=== PATIENT | female | born 1980 | race American Indian/Alaskan Native ===

== ENCOUNTER 2018-07-28 16:09 | Emergency (ER) | payer MEDICAID ==
--- NOTE | 2018-07-28 17:01 | Emergency Department Report ---
Blank Doc - Documentation Documentation: 37 y o female was sent here from a clinic for evaluation of no cardiac ac tivity lmp 06/06/18 denies vag bleed, abd pain quant hcg U/S reevaluate
[2018-07-28 17:34] LABS: Basophils % (Auto) 0.6 % (0.0-1.8); Eosinophils % (Auto) 0.4 % (0.0-4.3); Hematocrit 35.4 % (30.3-42.9); Lymphocytes # (Auto) 2.5 K/mm3 (1.2-5.4); Lymphocytes % (Auto) 30.5 % (13.4-35.0); Mean Corpuscular HGB Conc 34 % (30-34); Mean Corpuscular Volume 86 fl (79-97); Monocytes # (Auto) 0.4 K/mm3 (0.0-0.8); Monocytes % (Auto) 4.8 % (0.0-7.3); Platelet Count 303 K/mm3 (140-440); Red Blood Count 4.11 M/mm3 (3.65-5.03); Red Cell Distribution Width 15.5 % (13.2-15.2)
[2018-07-28 17:45] LABS: INR 0.9 (0.87-1.13)
[2018-07-28 17:46] LABS: Partial Thromboplastin Time 28.4 Sec. (24.2-36.6)
--- NOTE | 2018-07-28 18:41 | Emergency Department Report ---
ED HPI - General Chief complaint: Abdominal Pain Stated complaint: NO HEART BEAT FOR BABY Time Seen by Provider: 07/28/18 16:56 Source: patient Mode of arrival: Ambulatory Limitations: No Limitations - History of Present Illness Initial comments: This is a 37-year-old female nontoxic, well nourished in appearance, no acute signs of distress presents to the ED with c/o of no tone. Patient stated that she was seen in a clinic and when ultrasound has been performed, patient was told that they can not see any heart tones. Patient stated LMP was 06/06/2018. Patient denies seeing a OBGYN yet. Patient denies any vaginal bleeding. Patient denies any abdominal or pelvic pain. Patient denies any vaginal discharge or foul odor. Patient denies urinary symptoms. Patient denies any nausea, vomiting, chest pain, shortness of breathe, fever, chills, headache, stiff neck, numbness, tingling. Patient denies any allergies or PMH. -: This morning Radiation: none Severity scale (0 -10): 0 Improves with: none Worsens with: none Associated symptoms: denies other symptoms. denies: nausea/vomiting, vaginal bleeding, vaginal discharge, abdominal pain, dysuria, headache, vision changes, malaise, dysparuenia, rash, seizure, shortness of breath, syncope, weakness Vaginal bleeding: none :: Yes Pre- care: none - Related Data Previous Rx's Medication Instructions Recorded Last Taken Type 21/Iron Fu/Folic Acid 1 each PO DAILY #30 tablet 07/28/18 Unknown Rx [ Complete Caplet] Allergies Allergy/AdvReac Type Severity Reaction Status Date / Time No Known Allergies Allergy Unverified 07/28/18 16:56 ED Review of Systems ROS: Stated complaint: NO HEART BEAT FOR BABY Other details as noted in HPI Constitutional: denies: chills, fever Eyes: denies: eye pain, eye discharge, vision change ENT: denies: ear pain, throat pain Respiratory: denies: cough, shortness of breath, wheezing Cardiovascular: denies: chest pain, palpitations Endocrine: no symptoms reported Gastrointestinal: denies: abdominal pain, nausea, diarrhea Genitourinary: denies: urgency, dysuria, discharge Musculoskeletal: denies: back pain, joint swelling, arthralgia Skin: denies: rash, lesions Neurological: denies: headache, weakness, paresthesias Psychiatric: denies: anxiety, depression Hematological/Lymphatic: denies: easy bleeding, easy bruising ED Past Medical Hx - Past Medical History Previous Medical History?: No - Surgical History Past Surgical History?: No - Social History Smoking Status: Never Smoker Substance Use Type: None - Medications Home Medications: Home Medications Medication Instructions Recorded Confirmed Last Taken Type 21/Iron Fu/Folic Acid 1 each PO DAILY #30 tablet 07/28/18 Unknown Rx [ Complete Caplet] ED Physical Exam - General Limitations: No Limitations General appearance: alert, in no apparent distress - Head Head exam: Present: atraumatic, normocephalic - Neck Neck exam: Present: normal inspection, full ROM - GI/Abdominal GI/Abdominal exam: Present: soft, normal bowel sounds. Absent: distended, tenderness, guarding, rebound, rigid, diminished bowel sounds - Extremities Exam Extremities exam: Present: normal inspection, full ROM, normal capillary refill - Back Exam Back exam: Present: normal inspection, full ROM - Neurological Exam Neurological exam: Present: alert, oriented X3 - Psychiatric Psychiatric exam: Present: normal affect, normal mood - Skin Skin exam: Present: warm, dry, intact, normal color. Absent: rash ED Course Vital Signs 07/28/18 16:56 Temperature 98.5 F Pulse Rate 81 Respiratory 18 Rate Blood Pressure 135/54 [Left] O2 Sat by Pulse 99 Oximetry - Reevaluation(s) Reevaluation #1: 07/28/18 21:01 Patient is speaking in full sentences with no signs of distress noted. ED Medical Decision Making - Lab Data Result diagrams: 07/28/18 17:22 07/28/18 17:22 - Medical Decision Making This is a 37-year-old female presents with . Patient is stable and was examined by me. Normal abdominal exam. US OB obtained and dictated by the radiologist. Ua obtained. Quantative serum test obtained. Patient notified of the US report with no questions noted by the patient. Patient was instructed f/u with [facility] in 2-3 days to follow up with a [facility] or to emergency room for a reevaluation of serum quantative test with possible ultrasound. Labs within normal limits. Patient was given strict precautions and education on ectopic . At time of discharge, the patient does not seem toxic or ill in appearance. No acute signs of distress noted. Patient agrees to discharge treatment plan of care. No further questions noted by the patient. Critical care attestation.: If time is entered above; I have spent that time in minutes in the direct care of this critically ill patient, excluding procedure time. ED Disposition Clinical Impression: Qualifiers: Weeks of gestation: less than 8 weeks Qualified Code(s): Z3A.01 - Less than 8 weeks gestation of Disposition: DC- TO HOME OR SELFCARE Is pt being admited?: No Does the pt Need Aspirin: No Condition: Stable Instructions: (ED) Additional Instructions: Follow-up with a OBGYN doctor in 2-3 days or if symptoms worsen and continue return to emergency room as soon as possible. Prescriptions: 21/Iron Fu/Folic Acid [ Complete Caplet] 1 each PO DAILY #30 tablet Referrals: [facility] [Outside] - 3-5 Days [facility] [Outside] - 3-5 Days [facility] [Referring] - 3-5 Days DEION JORDAN MD [Staff Physician] - 3-5 Days JOSE RODRÍGUEZ MD [Staff Physician] - 3-5 Days [facility] [Provider Group] - 3-5 Days Forms: Work/School Release Form(ED)
[2018-07-28 19:12] LABS: Alanine Aminotransferase 7 units/L (7-56); Albumin 4.3 g/dL (3.9-5); BUN/Creatinine Ratio 11; Blood Urea Nitrogen 8 mg/dL (7-17); Calcium 9.5 mg/dL (8.4-10.2); Hemolysis Index 3
[2018-07-28 20:58] LABS: Bilirubin,Urine NEG (Negative); Blood,Urine NEG (Negative); Color,Urine Yellow (Yellow); Mucus,Urine FEW /HPF; Protein,Urine <15 mg/dL mg/dL (Negative); Urobilinogen,Urine < 2.0 mg/dL (<2.0)
--- NOTE | 2018-07-28 21:08 | Ultrasound Report ---
FINAL REPORT PROCEDURE: US OB < = 14 WEEKS FETUS TECHNIQUE: Real-time transabdominal sonography of the uterus, placenta, amniotic fluid, adnexa, and fetus was performed with image documentation. Measurements were obtained to determine age/size. M-mode Doppler was used to document heartbeat. CPT 22914 HISTORY: no hb COMPARISON: No prior studies are available for comparison. FINDINGS: A single intrauterine gestational sac is identified fluid a small pole is noted measuring about a millimeters corresponding to 6 weeks and 3 days the. cardiac activity not visualized. Yolk s ac is visualized and appears normal. An irregular hypoechoic lesion is in the subchorionic region дмитрий suring 1.3 x 1.2 x 0.6 centimeters consistent with a subchorionic hemorrhage. Cervix is normal in int ernal os is closed. Right ovary measures 2.7 x 1.4 x 2 centimeters with normal echotexture. Left ovary measures 3.9 x 2.5 x 3.5 centimeters with an irregular cystic lesion measuring 2.1 x 1.0 centimeters. There is no free fluid in the pelvic cavity. IMPRESSION: A small pole is noted corresponding to 6 weeks and 3 days of gestational age. There is no cardiac activity consistent with intrauterine failure. Small irregular subchorionic bleed identified
--- NOTE | 2018-07-28 21:09 | Ultrasound Report ---
FINAL REPORT PROCEDURE: US OB TRANSVAGINAL TECHNIQUE: Real-time transvaginal sonography of the uterus, placenta, amniotic fluid, adnexa, and fe tus was performed with image documentation. Measurements were obtained to determine age/size. M -mode Doppler was used to document heartbeat. CPT 61501 HISTORY: no hb COMPARISON: No prior studies are available for comparison. FINDINGS: A single intrauterine gestational sac is identified fluid a small pole is noted measuring about a millimeters corresponding to 6 weeks and 3 days the. cardiac activity not visualized. Yolk s ac is visualized and appears normal. An irregular hypoechoic lesion is in the subchorionic region дмитрий suring 1.3 x 1.2 x 0.6 centimeters consistent with a subchorionic hemorrhage. Cervix is normal in int ernal os is closed. Right ovary measures 2.7 x 1.4 x 2 centimeters with normal echotexture. Left ovary measures 3.9 x 2.5 x 3.5 centimeters with an irregular cystic lesion measuring 2.1 x 1.0 centimeters. There is no free fluid in the pelvic cavity. IMPRESSION: A small pole is noted corresponding to 6 weeks and 3 days of gestational age. There is no cardiac activity consistent with intrauterine failure. Small irregular subchorionic bleed identified
[2018-07-28 22:16] VITALS: BP 157/78
== END 2018-07-28 22:16 | disposition home or self-care (01) ==
LOC: ED 16:09
DX: O26.891 Other specified pregnancy related conditions, first trimester (principal); Z3A.01 Less than 8 weeks gestation of pregnancy
CPT/HCPCS: 36415; 76801; 76817; 80053; 81001; 84702; 85025; 85610; 85730; 86900; 86901

== ENCOUNTER 2018-08-20 10:39 | Day surgery (SDC) | payer MEDICAID ==
--- NOTE | 2018-08-20 10:36 | History and Physical Report ---
History of Present Illness Date of examination: 08/20/18 History of present illness: Ethnicity: Menstrual History Regularity: regular Duration: 4-5 LMP: 06/06/2018 LMP reliability: definite LMP character: normal test type: urine test Date: 08/07/2018 BC at conception: none Planned ? yes EDC Calculations LMP: 03/13/2019 EDC Confirmation: 03/13/2019 Past History : 5 Term Births: 3 Premature Births: 0 Living Children: 3 Para: 3 Mult. Births: 0 Prev : 0 Aborta: 1 Elect. Ab: 1 Spont. Ab: 0 Ectopics: 0 # 1 Delivery date: 10/29/2001 Weeks Gestation: 39 labor: no Delivery type: Hours of labor: 20 Anesthesia type: IV Delivery location: [place] Sex: Female weight: 4-12 Name: Maria C # 2 Delivery date: 05/18/2004 Weeks Gestation: 39 labor: no Delivery type: Hours of labor: 20 Anesthesia type: epidural Delivery location: [place] Sex: Male weight: 5-? Name: Abel # 3 Delivery date: 04/23/2008 Weeks Gestation: 39 labor: no Delivery type: Hours of labor: ? Anesthesia type: epidural Delivery location: [place] Infant Sex: Male weight: 7-8 Name: Joshua # 4 Delivery date: 04/2017 Delivery type: EAB Past Medical History: Negative Past Medical History Past Surgical History: D&C: (2016) Family History Summary: Other family member - Has No Family History of Ovarvian Cancer - Entered On: 08/07/2018 Other family member - Has No Family History of Colon Cancer - Entered On: 08/07/2018 Other family member - Has No Family History of Breast Cancer - Entered On: 08/07/2018 Other family member - Has Family History of Hypertension - Entered On: 08/07/2018 Social History: Marital Status: single Children: 3 Occupation: Unemployment Risk Factors: Smoked Tobacco Use: Never smoker Drug use: yes Substance: marijuana HIV high-risk behavior: low risk Alcohol use: no Past Medical History Surgery (Non-logistics engineer): D&C: (2016) Abnormal PAP: negative Uterine Anomaly: negative Social Hx: Marital Status: single Children: 3 Occupation: Unemployment Infection History Hx of STD: none HIV Risk Eval: low risk Hepatitis B Risk Eval: low risk Personal hx. of genital herpes: no Active Medications (reviewed today): PROMETHAZINE HCL 25 MG ORAL TABLET (PROMETHAZINE HCL) 1 po q 6 hrs prn nausea Current Allergies (reviewed today): No known allergies Review of Systems General Denies fever, chills, sweats, anorexia, fatigue, weakness, malaise, weight loss and sleep disorder. Complains of pelvic pain. Denies vaginal discharge, incontinence, dysuria, hematuria, urinary frequency, amenorrhea, menorrhagia, abnormal vaginal bleeding, genital sores, decreased libido, painful periods, painful sex, urinary urgency, hot flashes, vaginal dryness, vaginal itching and vaginal odor. CV Denies chest pains, palpitations, syncope, dyspnea on exertion, orthopnea, PND and peripheral edema. Resp Denies cough, dyspnea at rest, excessive sputum, hemoptysis, wheezing and pleurisy. GI Complains of nausea and vomiting. Denies diarrhea, constipation, change in bowel habits, abdominal pain, melena, hematochezia, jaundice, gas/bloating, indigestion/heartburn, dysphagia and odynophagia. Breast Denies left breast lump, right breast lump, nipple discharge, bloody discharge from nipple, breast pain, abnormal mammogram and breast enlargement. Psych Denies depression, anxiety, irritability and mood swings. Past History Past Medical History: No medical history Past Surgical History: Other (See HPI) Social history: other (See HPI) Family history: other Medications and Allergies Allergies Allergy/AdvReac Type Severity Reaction Status Date / Time No Known Allergies Allergy Unverified 08/19/18 17:27 Home Medications Medication Instructions Recorded Confirmed Last Taken Type No Known Home Medications [No 08/19/18 08/19/18 Unknown History Reported Home Medications] Review of Systems Constitutional: other (See HPI) Exam - Physical Exam Narrative exam: HEENT: normocephalic, no lesions or deformities Neck/Thyroid: supple, thyroid normal Skin no significant abnormal lesions or rashes Chest: respiratory effort normal, clear to auscultation Breasts: skin/areolae normal, no masses, no nipple discharge, no erythema/warmth/tenderness, and axillae normal. CV: regular, normal S1-S2, no murmur, no rub, no gallop Abdomen: normal bowel sounds, soft, nontender, no HSM Musculoskeletal: grossly normal ROM in joints, no joint tenderness or muscle weakness Neuro: no gross anomalities Extremities: no clubbing, cyanosis, or edema [employer] Exams Vulva/Vagina: No lesions, normal BUS, normal rugae Cervix: No lesions; no cervical motion tenderness Uterus: normal size and position, midline, mobile Adnexae: no masses or tenderness Rectovaginal: exam defered Assessment and Plan - Patient Problems (1) Missed Status: Acute Plan to address problem: Medical and surgical treatment options discussed Patient desires definitive treatment Discussed risk of surgery including infection, bleeding and risk of perforating her uterus. Questions answered. Patient understands and desires to proceed
[2018-08-20] MEDS ORDERED: LACTATED RINGERS 1,000 ML IV SCH (11:00)
[2018-08-20] MEDS ORDERED: ZOFRAN IV PRN (11:29)
[2018-08-20] MEDS ORDERED: SUBLIMAZE IV PRN (11:29)
--- NOTE | 2018-08-20 11:29 | Anesthesia Day of Surgery ---
Anesthesia Day of Surgery - Day of Surgery Patient Examined: Yes Patient H&P Reviewed: Yes Patient is NPO: No (Had few sips of gatorade at 11A. Denies other intake. Bottle was seen by RN)
--- NOTE | 2018-08-20 11:32 | Anesthesia Consultation ---
Anesthesia Consult and Med Hx Date of service: 08/20/18 - Airway Anesthetic Teeth Evaluation: Good, Caps, Crowns ROM Head & Neck: Adequate Mental/Hyoid Distance: Adequate Mallampati Class: Class II Intubation Access Assessment: Good - Pre-Operative Health Status ASA Pre-Surgery Classification: ASA2 Proposed Anesthetic Plan: General - Pulmonary Hx Smoking: Yes (Marijuana) - Central Nervous System CVA: No (Migraines) Hx Back Pain: Yes Hx Psychiatric Problems: No - Other Systems Hx Substance Use: Yes (Marijuana occas) Hx Cancer: No - Additional Comments Anesthesia Medical History Comments: 8w gest
[2018-08-20] MEDS ORDERED: NEURONTIN PO NR (12:00)
[2018-08-20] MEDS ORDERED: TYLENOL PO NR ×2 (12:00)
[2018-08-20] MEDS ORDERED: HEPARIN 10,000 UNITS/10 ML ONE (12:13)
[2018-08-20] MEDS ORDERED: XYLOCAINE MPF 2% ONE (12:14)
[2018-08-20] MEDS ORDERED: SUBLIMAZE ONE (12:14)
[2018-08-20] MEDS ORDERED: DIPRIVAN 10 MG/ML IV ONE (12:14)
[2018-08-20] MEDS ORDERED: NACL 0.9% IR ONE (12:30)
[2018-08-20] MEDS ORDERED: DECADRON ONE (12:36)
[2018-08-20] MEDS ORDERED: ZOFRAN ONE (12:36)
[2018-08-20] MEDS ORDERED: METHERGINE IM ONE (12:53)
--- NOTE | 2018-08-20 12:58 | Operative Report ---
Operative Report Operative Report: Date of procedure: 08/20/2018 Pre-operative diagnosis: Missed Post-operative diagnosis: Same Procedure name(s): Suction dilatation and curettage Surgeon: Faraz Morales MD [employer]: [] Anesthesia: General EBL: 50 mL Complications: None Findings: A moderate amount of tissue consistent with products of conception Specimen(s): Uterine contents Procedure: The patient was brought operating room where general anesthesia was induced without difficulty. Patient was placed in dorsal lithotomy position prepped and draped in the usual sterile manner. Rubber catheter was used to empty her bladder. Speculum placed in the vagina. Tenaculum was placed at 12:00. The cervix was dilated progressively with Hegar dilators. A 10 mm suction catheter was placed through the cervical os. Several passes of the suction catheter removed the uterine contents. General curettage was done with a banjo curettte. On until a gritty sensation was felt throughout the uterine cavity. Further suction with the suction curettage revealed no further products. All instruments were removed patient was hemostatic. She was awakened in the operating room and accompanied to recovery room in good condition.
--- NOTE | 2018-08-20 14:58 | Short Stay Summary ---
Short Stay Documentation Date of service: 08/20/18 - History H&P: dictated Past Medical History: No medical history Past Surgical History: Other (See HPI) Social history: other (See HPI) - Allergies and Medications Current Medications: Allergies No Known Allergies Allergy (Unverified 08/19/18 17:27) Home Medications Medication Instructions Recorded Confirmed Last Taken Type Acetaminophen/Codeine [Tylenol #3] 1 tab PO Q4HR PRN #15 tablet 08/20/18 Unknown Rx Doxycycline [Vibramycin CAP] 100 mg PO Q12HR #14 capsule 08/20/18 Unknown Rx Ferrous Sulfate [Feosol 325 MG tab] 325 mg PO BID #60 tablet 08/20/18 Unknown Rx Ibuprofen [Motrin 800 MG tab] 800 mg PO Q6H PRN #30 tablet 08/20/18 Unknown Rx Methylergonovine [Methergine] 0.2 mg PO Q8HR #6 tablet 08/20/18 Unknown Rx Active Medications Acetaminophen (Tylenol) 650 mg PO PREOP NR Stop: 08/20/18 16:00 Celecoxib (Celebrex) 200 mg PO PREOP NR Stop: 08/20/18 18:00 Last Admin: 08/20/18 12:07 Dose: 200 mg Documented by: Fentanyl (Sublimaze) 50 mcg IV Q5MIN PRN PRN Reason: Pain , Severe (7-10) Stop: 08/20/18 20:00 Gabapentin (Neurontin) 300 mg PO PREOP NR Stop: 08/20/18 18:00 Last Admin: 08/20/18 12:05 Dose: 300 mg Documented by: Lactated Ringer's (Lactated Ringers) 1,000 mls @ 75 mls/hr IV DIRECT MARILU Last Admin: 08/20/18 11:45 Dose: 75 mls/hr Documented by: Ibuprofen (Motrin) 800 mg PO Q8H ONE Stop: 08/20/18 15:31 Last Admin: 08/20/18 14:44 Dose: 800 mg Documented by: Ondansetron HCl (Zofran) 4 mg IV ONCE PRN PRN Reason: Nausea And Vomiting Stop: 08/20/18 18:00 - Brief post op/procedure progress note Date of procedure: 08/20/18 (see operative note) - Hospital course Hospital course: Patient was admitted underwent the above him procedure without any complications. Patient will be discharged with follow-up in office in 1-2 weeks for postop check. - Disposition Disposition: DC- TO HOME OR SELFCARE - Discharge Diagnoses (1) Missed Status: Acute Short Stay Discharge Plan Activity: advance as tolerated Diet: regular Additional Instructions: NOTHING PER VAGINA-NO SEX. NO DOUCHE, NO TAMPOONS. NO TUB BATH.MAY SHOWER AND WASH HAIR.USE SANITARY PADS. CALL FOR F/U APPT. MOTRIN GIVEN AT 1444(1) Follow up with: REGIS CROCKETT MD [Primary Care Provider] - 7 Days Forms: Outpatient Surgery DC Inst. Prescriptions: Ferrous Sulfate [Feosol 325 MG tab] 325 mg PO BID #60 tablet Methylergonovine [Methergine] 0.2 mg PO Q8HR #6 tablet Ibuprofen [Motrin 800 MG tab] 800 mg PO Q6H PRN #30 tablet PRN Reason: Pain Acetaminophen/Codeine [Tylenol #3] 1 tab PO Q4HR PRN #15 tablet PRN Reason: Pain Doxycycline [Vibramycin CAP] 100 mg PO Q12HR #14 capsule
[2018-08-20] MEDS ORDERED: IBUPROFEN PO ONE (15:30)
[2018-08-20 16:37] VITALS: BP 122/73
--- NOTE | 2018-08-21 09:09 | Post Anesthesia Evaluation ---
- Post Anesthesia Evaluation Patient Participated: Yes Airway Patent: Yes Stable Respiratory Function: Yes Nausea/Vomiting: No Temp > 96.8F: Yes Pain Manageable: Yes Adequeate Hydration: Yes Anesthesia Complications: No Block Receding Appropriately: Not Applicable Patient on Ventilator: No
== END 2018-08-20 15:10 | disposition home or self-care (01) ==
LOC: OR 10:39
PROVIDERS: ATTEND Obstetrics & Gynecology
DX: O02.1 Missed abortion (principal); G43.909 Migraine, unspecified, not intractable, without status migrainosus; Z86.73 Personal history of transient ischemic attack (TIA), and cerebral infarction without residual deficits; Z79.899 Other long term (current) drug therapy
CPT/HCPCS: 59820; 88305; J1100; J2210; J2405; J2704; J3010; J7120; J1644

== ENCOUNTER 2019-02-20 12:04 | Emergency (ER) | payer MEDICAID ==
[2019-02-20 13:14] VITALS: BP 143/72
--- NOTE | 2019-02-20 13:34 | Emergency Department Report ---
ED Back Pain/Injury HPI - General Chief Complaint: Back Pain/Injury Stated Complaint: BACK PAIN Time Seen by Provider: 02/20/19 13:29 Source: patient Limitations: No Limitations - History of Present Illness Initial Comments: 38 y/o female comes in for intermitten back pain time 1 week. 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 Patient denies any dysuria no vaginal discharge no urinary incontinence of bowel incontinence. Has tried Tyleno and Ibuprofen and warm compress. MD Complaint: back pain Onset/Timin -: week(s) Similar Symptoms Previously: No Place: work Radiation: left leg, right leg Severity: moderate Severity scale (0 -10): 7 Quality: burning, sharp Consistency: intermittent Context: while lifting Associated Symptoms: denies other symptoms Treatments Prior to Arrival: heat therapy, NSAIDS, acetaminophen - Related Data Previous Rx's Medication Instructions Recorded Last Taken Type Acetaminophen/Codeine [Tylenol #3] 1 tab PO Q4HR PRN #15 tablet 08/20/18 Unknown Rx DOXYCYCLINE Hyclate [Vibramycin 100 mg PO Q12HR #14 capsule 08/20/18 Unknown Rx CAP] Ferrous Sulfate [Feosol 325 MG tab] 325 mg PO BID #60 tablet 08/20/18 Unknown Rx Ibuprofen [Motrin 800 MG tab] 800 mg PO Q6H PRN #30 tablet 08/20/18 Unknown Rx Methylergonovine [Methergine] 0.2 mg PO Q8HR #6 tablet 08/20/18 Unknown Rx Ibuprofen [Motrin 600 MG tab] 600 mg PO Q8H PRN #30 tablet 02/20/19 Unknown Rx tiZANidine [Zanaflex 4mg TAB] 4 mg PO TID #21 tablet 02/20/19 Unknown Rx Allergies Allergy/AdvReac Type Severity Reaction Status Date / Time No Known Allergies Allergy Verified 02/20/19 12:06 ED Review of Systems ROS: Stated complaint: BACK PAIN Other details as noted in HPI Constitutional: denies: chills, fever Eyes: denies: eye pain, eye discharge, vision change ENT: denies: ear pain, throat pain Respiratory: denies: cough, shortness of breath, wheezing Cardiovascular: denies: chest pain, palpitations Endocrine: no symptoms reported Gastrointestinal: denies: abdominal pain, nausea, diarrhea Genitourinary: denies: urgency, dysuria, discharge Musculoskeletal: denies: back pain, joint swelling, arthralgia Skin: denies: rash, lesions Neurological: denies: headache, weakness, paresthesias Psychiatric: denies: anxiety, depression Hematological/Lymphatic: denies: easy bleeding, easy bruising ED Past Medical Hx - Past Medical History Previous Medical History?: No Hx Headaches / Migraines: Yes (Migraines) - Surgical History Past Surgical History?: No - Social History Smoking Status: Never Smoker Substance Use Type: None - Medications Home Medications: Home Medications Medication Instructions Recorded Confirmed Last Taken Type Acetaminophen/Codeine [Tylenol #3] 1 tab PO Q4HR PRN #15 tablet 08/20/18 Unknown Rx DOXYCYCLINE Hyclate [Vibramycin 100 mg PO Q12HR #14 capsule 08/20/18 Unknown Rx CAP] Ferrous Sulfate [Feosol 325 MG tab] 325 mg PO BID #60 tablet 08/20/18 Unknown Rx Ibuprofen [Motrin 800 MG tab] 800 mg PO Q6H PRN #30 tablet 08/20/18 Unknown Rx Methylergonovine [Methergine] 0.2 mg PO Q8HR #6 tablet 08/20/18 Unknown Rx Ibuprofen [Motrin 600 MG tab] 600 mg PO Q8H PRN #30 tablet 02/20/19 Unknown Rx tiZANidine [Zanaflex 4mg TAB] 4 mg PO TID #21 tablet 02/20/19 Unknown Rx ED Physical Exam - General Limitations: No Limitations General appearance: alert, in no apparent distress - Head Head exam: Present: atraumatic, normocephalic - Eye Eye exam: Present: normal appearance - ENT ENT exam: Present: mucous membranes moist - Neck Neck exam: Present: normal inspection - Respiratory Respiratory exam: Present: normal lung sounds bilaterally. Absent: respiratory distress - Cardiovascular Cardiovascular Exam: Present: regular rate, normal rhythm. Absent: systolic murmur, diastolic murmur, rubs, gallop - GI/Abdominal GI/Abdominal exam: Present: soft, normal bowel sounds - Extremities Exam Extremities exam: Present: normal inspection - Back Exam Back exam: Present: normal inspection, full ROM. Absent: tenderness, muscle spasm, paraspinal tenderness, vertebral tenderness - Neurological Exam Neurological exam: Present: alert, oriented X3 - Psychiatric Psychiatric exam: Present: normal affect, normal mood - Skin Skin exam: Present: warm, dry, intact, normal color. Absent: rash ED Course Vital Signs 02/20/19 13:12 Temperature 97.5 F L Pulse Rate 68 Respiratory 16 Rate Blood Pressure 143/72 Blood Pressure 143/72 [Right] O2 Sat by Pulse 98 Oximetry ED Medical Decision Making - Medical Decision Making 38 y/o female comes in for intermitten back pain time 1 week. 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 Patient denies any dysuria no vaginal discharge no urinary incontinence of bowel incontinence. Has tried Tyleno and Ibuprofen and warm comp ress. Recommend zanaflex and Ibuprofen and stretches. Continue with heat therapy. Critical care attestation.: If time is entered above; I have spent that time in minutes in the direct care of this critically ill patient, excluding procedure time. ED Disposition Clinical Impression: Back strain Qualifiers: Encounter type: initial encounter Qualified Code(s): S39.012A - Strain of muscle, fascia and tendon of lower back, initial encounter Disposition: DC- TO HOME OR SELFCARE Is pt being admited?: No Does the pt Need Aspirin: No Condition: Stable Instructions: Muscle Strain (ED), Low Back Strain (ED) Additional Instructions: take medication as prescribed. Continue with heat therapy Prescriptions: Ibuprofen [Motrin 600 MG tab] 600 mg PO Q8H PRN #30 tablet PRN Reason: Pain tiZANidine [Zanaflex 4mg TAB] 4 mg PO TID #21 tablet Referrals: [facility] [Outside] - 3-5 Days
== END 2019-02-20 14:40 | disposition home or self-care (01) ==
LOC: ED 12:04
DX: S39.012A Strain of muscle, fascia and tendon of lower back, initial encounter (principal); X50.9XXA Other and unspecified overexertion or strenuous movements or postures, initial encounter; Y93.89 Activity, other specified; Y92.89 Other specified places as the place of occurrence of the external cause; Y99.8 Other external cause status
CPT/HCPCS: 99282